=== PATIENT | male | born 1945 | race Caucasian/White ===

== ENCOUNTER 2021-07-10 19:34 | Emergency (ER) | payer BC ==
[~2021-07-10] VITALS: Ht 188 cm; Wt 98.6 kg
[2021-07-10 19:53] VITALS: BP 133/68
[2021-07-10 20:02] VITALS: BP 136/77
[2021-07-10 20:14] LABS: HEMATOCRIT 45.2 % (39.0-50.0); HEMOGLOBIN 15.1 g/dl (14.0-18.0); IMMATURE GRANULOCYTES 0.3 % (0.0-5.0); MEAN CELL VOLUME 92.2 fL CALC (80.0-100.0); MEAN CORPUSCULAR HGB 30.8 pG CALC (26.0-32.0); MEAN CORPUSCULAR HGB CONC 33.4 g/dL CAL (32.0-36.0); NEUT# 4.32 thou/uL (1.82-7.42); RED BLOOD COUNT 4.9 mill/uL (4.70-6.10); RED CELL DISTRI WIDTH 12.2 % (11.5-15.5)
[2021-07-10] MEDS ORDERED: METFORMIN500 M2 PO (20:23)
[2021-07-10] MEDS ORDERED: ASPIRIN81 MG PO (20:24)
[2021-07-10] MEDS ORDERED: LIPITOR40 M1 PO (20:24)
[2021-07-10] MEDS ORDERED: LISINOPRIL2.5 MG PO (20:24)
[2021-07-10 20:25] LABS: ALBUMIN 4.4 g/dL (3.2-5.0); ALKALINE PHOSPHATASE 139 u/l (38-126); ANION GAP 11 (6-22 (CALC)); BILIRUBIN, TOTAL 0.6 mg/dL (0.0-1.4); BUN 15 mg/dL (8-23); BUN/CREATININE RATIO 16 (12-20 (CALC)); CARBON DIOXIDE 31 mmol/l (22-30); CHLORIDE 99 mmol/l (95-108); CPK 215 u/l (52-200); CREATININE 0.9 mg/dL (0.7-1.3); GFR > 60 ML/MIN (>=60 (CALC)); GFR FOR AFR.AMER. > 60 ML/MIN (>=60 (CALC)); MAGNESIUM 2.1 mg/dL (1.6-2.3); SGOT/AST 27 u/l (19-48); SODIUM 136 mmol/l (137-146); TOTAL PROTEIN 7.7 g/dL (6.3-8.2)
[2021-07-10 20:30] VITALS: BP 150/79
[2021-07-10 20:34] LABS: MYOGLOBIN 230 ng/mL (0 - 121)
[2021-07-10 20:56] LABS: TSH, 3RD GENERATION 2.14 uIU/mL (0.47 - 4.68)
[2021-07-10 21:43] VITALS: BP 150/79
== END 2021-07-10 21:49 | disposition home or self-care (01) | DRG 605 ==
LOC: ED 19:34
PROVIDERS: Family Medicine
DX: S00.91XA Abrasion of unspecified part of head, initial encounter (principal); M47.812 Spondylosis without myelopathy or radiculopathy, cervical region; I10 Essential (primary) hypertension; E11.9 Type 2 diabetes mellitus without complications; Z79.84 Long term (current) use of oral hypoglycemic drugs; F17.220 Nicotine dependence, chewing tobacco, uncomplicated; W18.39XA Other fall on same level, initial encounter; Y92.89 Other specified places as the place of occurrence of the external cause; Z91.81 History of falling